=== PATIENT | male | born 1935 | race African-American/Black ===

== ENCOUNTER 2021-12-06 11:23 | Inpatient (IN) | payer BC, OTHER ==
[~2021-12-06] VITALS: Ht 172.7 cm; Wt 61.0 kg
[2021-12-06 11:30] VITALS: BP_SYST 107
--- NOTE | 2021-12-06 11:30 | NUR ---
Patient triaged and placed in waiting room. VSS and patient appears in no acute distress at this time. Accompanied by SELF, awaiting available bed, and MD notified of need for MSE.
--- NOTE | 2021-12-06 11:35 | NUR ---
PT SENT FROM DR. BENSON'S OFFICE FOR LOW H/H AND EVALUATION. PT DROVE SELF HERE, ARRIVES AAOX4, VSS. PT STATES HE HAS BEEN BEEN FEELING MORE TIRED THAN NORMAL, BUT DENIES PAIN.
[2021-12-06 12:15] LABS: BASOPHILS # (AUTO) 0.1 K/uL (0.0-0.2); EOSINOPHILS % (AUTO) 0.5 % (0.0-4.0); LYMPHOCYTES % (AUTO) 14.3 % (20.5-51.5); MEAN CORPUSCULAR HEMOGLOBIN 22 pg (27-31); MEAN CORPUSCULAR HGB CONC 31 % (32-36); MEAN CORPUSCULAR VOLUME 70 fL (79.0-98.0); MONOCYTES # (AUTO) 0.4 K/uL (0.0-1.0); MONOCYTES % (AUTO) 5.5 % (1.7-9.3); NEUTROPHILS # (AUTO) 5.3 K/uL (1.8-7.7); NEUTROPHILS % (AUTO) 78.7 % (40.0-70.0); PLATELET COUNT (AUTO) 388 K/uL (130-430); RED BLOOD CELL COUNT(AUTO) 2.96 MIL/uL (4.2-6.2); RED CELL DISTRIBUTION WIDTH 20.6 % (9.0-15.0); WHITE BLOOD COUNT (AUTO) 6.7 K/uL (4.8-10.8)
[2021-12-06 12:24] LABS: INR 1.1 (0.80-1.20); PROTHROMBIN TIME 11.5 SECS (9.5-12.5)
[2021-12-06 12:25] LABS: HEMATOCRIT 20.8 % (36-54); HEMOGLOBIN 6.5 g/dL (14.0-18.0)
[2021-12-06 13:11] LABS: ALANINE AMINOTRANSFERASE 21 U/L (12-78); ALBUMIN 2.6 g/dL (3.4-4.8); ANION GAP 18 (5-15); ASPARTATE AMINOTRANSFERASE 67 U/L (10-37); CHLORIDE 103 mmol/L (98-107); CREATININE 1.68 mg/dL (0.55-1.30); GLUCOSE 161 mg/dL (70-99); LIPASE 597 U/L (73-393); POTASSIUM 3.7 mmol/L (3.5-5.1); TOTAL BILIRUBIN 0.4 mg/dL (0.0-1.0); UREA NITROGEN, BLOOD 17 mg/dL (8-21)
[2021-12-06] MEDS ORDERED: PANTOPRAZOLE SODIUM 40 MG/VIAL (PROTONIX) IVP ONE (15:30)
--- NOTE | 2021-12-06 16:00 | NUR ---
# 20 gauge angiocath placed to LAC. Use of asceptic technique. Opsite placed over site. Blood return noted. Flushed with 10 cc of normal saline. No evidence of infiltration noted. Patient tolerated well.
--- NOTE | 2021-12-06 17:26 | NUR ---
covid swab and collected
[2021-12-06] MEDS ORDERED: ACETAMINOPHEN 325 MG TABLET PO PRN (17:45)
--- NOTE | 2021-12-06 17:55 | NUR ---
First contact. Pt presently on monitor. Denies pain. No acute distress noted.
--- NOTE | 2021-12-06 20:24 | NUR ---
Patient will be admitted to care of DR. BECERRA. Admitted to MED SURG unit. Will go to room 101 B. Belongings list completed. Complete and up to date summary report printed.
--- NOTE | 2021-12-06 20:38 | NUR ---
ADMIT NOTE Received pt from ER to with a diagnosis of Anemai. Patient ambulated from [place] to bed. Admission process initiated. patient oriented to pain management, safety and call light-teach back done.
[2021-12-06 21:36] VITALS: BP_SYST 147
--- NOTE | 2021-12-07 01:47 | NUR ---
PATIENT IS SLEEPING AT THIS TIME, ONE UNIT OF PRBC IS NOT READY YET, WILL WAIT FOR THE BLOOD TRANSFUSION . CALL LIGHT WITHIN REACH , SAFETY PROTOCOL ENSURE.
--- NOTE | 2021-12-07 04:46 | NUR ---
TRY TO CALL LABS X2 , NOBODY ANSWER , WILL F/U WITH LAB FOR 1 UNIT OF PRBC
--- NOTE | 2021-12-07 07:03 | NUR ---
RESORCE NURSE SAYING ER NURSE NEVER FILL UP THE BLOOD TRANSFUSION PAPER TO BLOOD BANK , SO PAPER JUST FILLED UP AND SENT TO BLOOD BANK, REPORT TO CHARGE NURSE.
[2021-12-07 07:33] LABS: ALANINE AMINOTRANSFERASE 20 U/L (12-78); ALBUMIN 2.3 g/dL (3.4-4.8); ANION GAP 7 (5-15); ASPARTATE AMINOTRANSFERASE 59 U/L (10-37); CALCIUM 8.2 mg/dL (8.4-11.0); CHLORIDE 108 mmol/L (98-107); CREATININE 1.39 mg/dL (0.55-1.30); GLUCOSE 85 mg/dL (70-99); POTASSIUM 4.2 mmol/L (3.5-5.1); TOTAL BILIRUBIN 0.6 mg/dL (0.0-1.0); UREA NITROGEN, BLOOD 16 mg/dL (8-21)
[2021-12-07 07:47] LABS: BASOPHILS % (AUTO) 0.5 % (0.0-2.0); EOSINOPHILS # (AUTO) 0.1 K/uL (0.0-0.4); EOSINOPHILS % (AUTO) 0.9 % (0.0-4.0); LYMPHOCYTES % (AUTO) 14.5 % (20.5-51.5); MEAN CORPUSCULAR HEMOGLOBIN 22 pg (27-31); MEAN CORPUSCULAR HGB CONC 31 % (32-36); MEAN CORPUSCULAR VOLUME 70 fL (79.0-98.0); MONOCYTES # (AUTO) 0.5 K/uL (0.0-1.0); MONOCYTES % (AUTO) 6.9 % (1.7-9.3); NEUTROPHILS # (AUTO) 5.1 K/uL (1.8-7.7); PLATELET COUNT (AUTO) 278 K/uL (130-430); RED BLOOD CELL COUNT(AUTO) 2.41 MIL/uL (4.2-6.2); RED CELL DISTRIBUTION WIDTH 20.4 % (9.0-15.0); WHITE BLOOD COUNT (AUTO) 6.6 K/uL (4.8-10.8)
[2021-12-07 08:00] VITALS: BP_SYST 118
[2021-12-07 08:22] LABS: HEMATOCRIT 16.8 % (36-54); HEMOGLOBIN 5.3 g/dL (14.0-18.0)
[2021-12-07 08:23] LABS: NEUTROPHILS % (AUTO) 77.2 % (40.0-70.0)
[2021-12-07 12:00] VITALS: BP_SYST 128
[2021-12-07] MEDS ORDERED: SIMETHICONE 40 MG/0.6 ML ML ONE (12:30)
[2021-12-07] MEDS ORDERED: MIDAZOLAM HCL 5 MG/5 ML VIAL ONE (12:30)
[2021-12-07] MEDS ORDERED: fentaNYL CITRATE/PF 100 MCG/2 ML AMP ONE (12:30)
[2021-12-07] MEDS: PANTOPRAZOLE SODIUM 40 MG in NS 50 ML IV SCH ×3 (14:05→20:00)
[2021-12-07] MEDS: OCTREOTIDE ACETATE 1,250 MCG in NS 248.75 ML IV SCH (14:18)
[2021-12-07] MEDS ORDERED: DIATR MEGLU/DIATRIZ SOD 30 ML SOLUTION PO ONE (15:02)
[2021-12-07 16:00] VITALS: BP_SYST 134
[2021-12-07 18:15] LABS: BASOPHILS % (AUTO) 0.4 % (0.0-2.0); EOSINOPHILS % (AUTO) 0.5 % (0.0-4.0); HEMATOCRIT 29.1 % (36-54); HEMOGLOBIN 9.2 g/dL (14.0-18.0); LYMPHOCYTES # (AUTO) 1.2 K/uL (1.0-5.5); LYMPHOCYTES % (AUTO) 14.5 % (20.5-51.5); MEAN CORPUSCULAR HEMOGLOBIN 23 pg (27-31); MEAN CORPUSCULAR HGB CONC 32 % (32-36); MONOCYTES # (AUTO) 0.6 K/uL (0.0-1.0); MONOCYTES % (AUTO) 7.3 % (1.7-9.3); NEUTROPHILS # (AUTO) 6.6 K/uL (1.8-7.7); NEUTROPHILS % (AUTO) 77.3 % (40.0-70.0); PLATELET COUNT (AUTO) 294 K/uL (130-430); RED BLOOD CELL COUNT(AUTO) 3.96 MIL/uL (4.2-6.2); RED CELL DISTRIBUTION WIDTH 21.7 % (9.0-15.0); WHITE BLOOD COUNT (AUTO) 8.5 K/uL (4.8-10.8)
[2021-12-07 18:17] LABS: MEAN CORPUSCULAR VOLUME 74 fL (79.0-98.0)
[2021-12-07 19:20] VITALS: BP_SYST 146
--- NOTE | 2021-12-07 19:20 | NUR ---
PM ASSESSMENT; -Pt is a/ox3, resting in bed. pt denies any chest pain,pain,sob, or any acute distress. IV site LAC patent, no s/s any infiltration noted. Pt is now on peritoneal dialysis. Pt is able to ambulate with steady gaits. Discussed poc,all safety measures to use call light for assistance or if experiencing any acute distress or pain, pt and sister verbalized understanding. fall precaution in place, side rails x2,call light w/in reach. Cont to monitor pt. Addendum: 12/08/21 at 0009 by [place] RegistryLINNEA RN CORRECTION- Pt isn't on peritoneal dialysis, not dialysis pt.
[2021-12-08 00:32] VITALS: BP_SYST 105
--- NOTE | 2021-12-08 00:32 | NUR ---
ROUNDS; -Pt is resting bed comfortably. IV site accidentally removed from pt. Inserted new IV site of left f/a #18, attempted x1 by Oleg-nurse, good blood returns and flushed well w/ ns, secured with tape and kerlix and continuing protonix drip. All safety measures,bed alarmed, side rails x3,call light w/in reach. cont to monitor pt.
[2021-12-08] MEDS: PANTOPRAZOLE SODIUM 40 MG in NS 50 ML IV SCH ×5 (01:50→21:26)
--- NOTE | 2021-12-08 01:50 | NUR ---
ROUNDS; -Pt is resting in bed comfortably. Pt denies any chest pain,pain,sob,or any acute distress. Protonix drip infusing well,no s/s any infiltration noted. Side rails x3, bed alarmed,call light w/in reach. Cont to monitor pt.
--- NOTE | 2021-12-08 04:26 | NUR ---
ROUNDS; -Pt is asleep. No s/s any chest pain,pain,sob,or any acute distress noted. Protonix drip infusing well,no s/s any infiltration noted. Side rails x3, bed alarmed,call light w/in reach. Cont to monitor pt.
--- NOTE | 2021-12-08 06:36 | NUR ---
CLOSING NOTES; -Pt is resting in bed. No s/s any chest pain,pain,sob, or any acute distress noted. IV site patent, no s/s any infiltration noted. Protonix drip infusing. Fall precaution in place,bed alarmed, side rails x3,call light w/in reach. Will endorse to next nurse to cont care.
[2021-12-08 06:51] LABS: BASOPHILS % (AUTO) 0.6 % (0.0-2.0); EOSINOPHILS # (AUTO) 0.1 K/uL (0.0-0.4); EOSINOPHILS % (AUTO) 1.4 % (0.0-4.0); HEMATOCRIT 25.1 % (36-54); LYMPHOCYTES # (AUTO) 0.5 K/uL (1.0-5.5); LYMPHOCYTES % (AUTO) 8.9 % (20.5-51.5); MEAN CORPUSCULAR HEMOGLOBIN 23 pg (27-31); MEAN CORPUSCULAR HGB CONC 32 % (32-36); MEAN CORPUSCULAR VOLUME 72 fL (79.0-98.0); MONOCYTES # (AUTO) 0.5 K/uL (0.0-1.0); NEUTROPHILS % (AUTO) 81.1 % (40.0-70.0); PLATELET COUNT (AUTO) 259 K/uL (130-430); RED BLOOD CELL COUNT(AUTO) 3.46 MIL/uL (4.2-6.2); RED CELL DISTRIBUTION WIDTH 21.7 % (9.0-15.0); WHITE BLOOD COUNT (AUTO) 6.2 K/uL (4.8-10.8)
--- NOTE | 2021-12-08 07:17 | NUR ---
CRITICAL LAB HCT=23.9, H=8.0, ENDORSED TO CHULA-RN TO CALL MD, SHE VERBALIZED THAT SHE WILL CALL MD.
[2021-12-08 07:24] LABS: ALANINE AMINOTRANSFERASE 16 U/L (12-78); ALBUMIN 2.2 g/dL (3.4-4.8); ANION GAP 6 (5-15); ASPARTATE AMINOTRANSFERASE 47 U/L (10-37); CALCIUM 8.4 mg/dL (8.4-11.0); CHLORIDE 106 mmol/L (98-107); GLUCOSE 134 mg/dL (70-99); TOTAL BILIRUBIN 1.2 mg/dL (0.0-1.0); UREA NITROGEN, BLOOD 14 mg/dL (8-21)
--- NOTE | 2021-12-08 07:28 | NUR ---
NOTES; NOW DAY SHIFT NURSE IS TARIQ. ENDORSED TO TARIQ TO CALL MD REGARDING CRITICAL HCT 23.9 AND HGB=8.0 AND TO ASK MD SIGN DNR STATUS UPON PT'S REQUEST.
[2021-12-08] MEDS: OCTREOTIDE ACETATE 1,250 MCG in NS 248.75 ML IV SCH (10:19)
[2021-12-08 11:29] VITALS: BP_SYST 130
[2021-12-08 15:29] VITALS: BP_SYST 130
[2021-12-08 19:20] VITALS: BP_SYST 137
--- NOTE | 2021-12-08 19:21 | NUR ---
PM ASSESSMENT; -Pt is a/ox4, resting in bed. pt denies any chest pain,pain,sob, or any acute distress. IV site LAC patent, no s/s any infiltration noted. Discussed poc,all safety measures to use call light for assistance or if experiencing any acute distress or pain, pt verbalized understanding. fall precaution in place, side rails x3,call light w/in reach. Cont to monitor pt.
--- NOTE | 2021-12-08 21:20 | NUR ---
NOTES; -Pt attempted to get OOB without using call light for assistance. Assisting pt to bathroom and return to bed safely. Pt has slow weak gaits noted, with mini assistance. Pt had a large dark tarry stool noted. Reminded pt to use call light for assistance when need to get OOB or if experiencing any pain or acute distress, pt verbalized understanding. Bed alarmed, side rails x3,call light w/in reach. cont to monitor pt.
[2021-12-09] MEDS: PANTOPRAZOLE SODIUM 40 MG in NS 50 ML IV SCH ×2 (00:13→05:59)
--- NOTE | 2021-12-09 00:13 | NUR ---
ROUNDS; -Pt is resting in bed comfortably. Pt denies any chest pain,pain,sob,or any acute distress. Side rails x3, bed alarmed,call light w/in reach. Cont to monitor pt.
[2021-12-09 00:41] VITALS: BP_SYST 137
--- NOTE | 2021-12-09 03:40 | NUR ---
NOTES; -Pt is asleep. No s/s any acute distress noted. bed alarmed, side rails x3, call light w/in reach. Cont to monitor pt.
--- NOTE | 2021-12-09 05:23 | NUR ---
CONSULTATION PAGED/CALLED Reason for Consultation: POSSIBLE DUODENAL CANCER Person Who was Notified:[place] Consulting Physician: KIERAN [employer] Specialty: Ordering Physician: RAÚL
--- NOTE | 2021-12-09 06:38 | NUR ---
CLOSING NOTES; -Pt is resting in bed. No s/s any chest pain,pain,sob, or any acute distress noted. IV site patent, no s/s any infiltration noted. Fall precaution in place,bed alarmed, side rails x3,call light w/in reach. Will endorse to next nurse to cont care.
[2021-12-09 07:43] LABS: ANION GAP 9 (5-15); CALCIUM 8.1 mg/dL (8.4-11.0); CHLORIDE 105 mmol/L (98-107); CREATININE 1.29 mg/dL (0.55-1.30); GLUCOSE 111 mg/dL (70-99); POTASSIUM 3.8 mmol/L (3.5-5.1); UREA NITROGEN, BLOOD 9 mg/dL (8-21)
[2021-12-09 07:59] LABS: BASOPHILS % (AUTO) 0.7 % (0.0-2.0); EOSINOPHILS # (AUTO) 0.1 K/uL (0.0-0.4); EOSINOPHILS % (AUTO) 2.2 % (0.0-4.0); HEMATOCRIT 27.7 % (36-54); HEMOGLOBIN 8.8 g/dL (14.0-18.0); LYMPHOCYTES # (AUTO) 0.9 K/uL (1.0-5.5); LYMPHOCYTES % (AUTO) 13.8 % (20.5-51.5); MEAN CORPUSCULAR HEMOGLOBIN 23 pg (27-31); MEAN CORPUSCULAR HGB CONC 32 % (32-36); MEAN CORPUSCULAR VOLUME 72 fL (79.0-98.0); MONOCYTES # (AUTO) 0.5 K/uL (0.0-1.0); MONOCYTES % (AUTO) 7.5 % (1.7-9.3); NEUTROPHILS # (AUTO) 5.1 K/uL (1.8-7.7); NEUTROPHILS % (AUTO) 75.8 % (40.0-70.0); PLATELET COUNT (AUTO) 269 K/uL (130-430); RED BLOOD CELL COUNT(AUTO) 3.83 MIL/uL (4.2-6.2); RED CELL DISTRIBUTION WIDTH 21.8 % (9.0-15.0); WHITE BLOOD COUNT (AUTO) 6.7 K/uL (4.8-10.8)
[2021-12-09 08:00] VITALS: BP_SYST 125
[2021-12-09] MEDS: OCTREOTIDE ACETATE 1,250 MCG in NS 248.75 ML IV SCH (11:21)
[2021-12-09 11:28] VITALS: BP_SYST 133
[2021-12-09 15:36] VITALS: BP_SYST 142
--- NOTE | 2021-12-09 17:39 | NUR ---
Shift Summary: patient is AAOX3-4. vitals are stable. patient and family updated on plan of care. patient currently resting. patient and family state they have no questions or concerns at this time. will endorse to oncoming nurse. call light within reach. bed set to low and locked. [id number] done during shift.
--- NOTE | 2021-12-09 19:30 | NUR ---
Opening note Pt is awake a/o x4, resting in bed. No s/s of respiratory distress. Breathing even and unlabored on RA. IV infusing octreotide drip at ordered rate. Pt does not c/o any pain. Fall and safety precautions in place with bed in lowest position, bed alarm on, and call light within reach
[2021-12-09 20:00] VITALS: BP_SYST 141
[2021-12-09] MEDS: PANTOPRAZOLE SODIUM 40 MG/VIAL (PROTONIX) IVP SCH (20:12)
[2021-12-10 00:09] VITALS: BP_SYST 125
--- NOTE | 2021-12-10 00:15 | NUR ---
NOTE assisted pt to the restroom, was able to ambulate with minimal assistance. No s/s of acute distress
--- NOTE | 2021-12-10 04:00 | NUR ---
Note Pt got up out of bed w/ bed alarm on in attempt to walk to the bathroom and pulled out IV. A new IV was placed - 24G in the right hand
--- NOTE | 2021-12-10 06:49 | NUR ---
Closing note Pt is awake lying in bed. No s/s of respiratory distress. Breathing even and unlabored on RA. IV infusing octreotide drip at ordered rate. Educated pt to use the call light if he needs to use the bathroom instead of getting up himself, verbalized understanding. All needs met throughout shift. Fall and safety precautions in place with bed in lowest position, bed alarm on, and call light within reach
[2021-12-10 07:09] LABS: HEMATOCRIT 29.1 % (36-54); HEMOGLOBIN 9.3 g/dL (14.0-18.0); MEAN CORPUSCULAR HEMOGLOBIN 23 pg (27-31); MEAN CORPUSCULAR HGB CONC 32 % (32-36); MEAN CORPUSCULAR VOLUME 72 fL (79.0-98.0); PLATELET COUNT (AUTO) 262 K/uL (130-430); RED BLOOD CELL COUNT(AUTO) 4.03 MIL/uL (4.2-6.2); RED CELL DISTRIBUTION WIDTH 21.7 % (9.0-15.0); WHITE BLOOD COUNT (AUTO) 7.2 K/uL (4.8-10.8)
[2021-12-10 07:29] LABS: ANION GAP 9 (5-15); CALCIUM 8.1 mg/dL (8.4-11.0); CHLORIDE 104 mmol/L (98-107); CREATININE 1.11 mg/dL (0.55-1.30); GLUCOSE 109 mg/dL (70-99); POTASSIUM 3.8 mmol/L (3.5-5.1); UREA NITROGEN, BLOOD 8 mg/dL (8-21)
[2021-12-10 07:55] VITALS: BP_SYST 137
[2021-12-10 08:00] VITALS: BP_SYST 137
[2021-12-10 09:09] LABS: BASOPHILS % (MANUAL) 0 % (0-2); EOSINOPHILS % (MANUAL) 1 % (0-7); LYMPHOCYTES % (MANUAL) 8 % (20-46); MONOCYTES % (MANUAL) 7 % (0-11)
[2021-12-10] MEDS: PANTOPRAZOLE SODIUM 40 MG/VIAL (PROTONIX) IVP SCH ×2 (09:31→22:35)
[2021-12-10] MEDS: OCTREOTIDE ACETATE 1,250 MCG in NS 248.75 ML IV SCH (11:00)
--- NOTE | 2021-12-10 15:27 | NUR ---
FOOD SAFETY COORDINATOR ACSW Joann respnded to a Hospice eval request ACSW faxed packet for review to [facility] F: P: ACSW Joann will continue to be available as needed
[2021-12-10 17:12] VITALS: BP_SYST 153
--- NOTE | 2021-12-10 19:00 | NUR ---
I RECEIVED ALERT AND FULLY ORIENTED X 3 .HAS IVF @10ml/h .A RT CANNULA IS IN TISSUE. RE INSERTED A G20 TO RT LOWER HAND .VITALS DONE BPS ELEVATED. MEDICATED WITH BP MEDS
[2021-12-10 20:00] VITALS: BP_SYST 140
--- NOTE | 2021-12-11 | NUR ---
PT SELF TURNS .IVF IN PROGRESS
[2021-12-11 00:42] VITALS: BP_SYST 139
[2021-12-11] MEDS: PANTOPRAZOLE SODIUM 40 MG/VIAL (PROTONIX) IVP SCH (09:00)
--- NOTE | 2021-12-11 11:30 | NUR ---
ASSISTANT WOMEN'S TENNIS COACH ACSW Joann provided hospice and discharge update to patient's RN Fatemeh. [facility] @230pm via [facility] ACSW will continue to be available as needed
--- NOTE | 2021-12-11 12:30 | NUR ---
ENTRY EXAMINER ACSW Joann met with patient at bedside. Patient was awake, alert and oriented x4. ACSW completed introductions and provided business card, patient was open to contact. Patient's sister Yuliana was also present and patient provided permission to continue contact. ACSW discussed hospice services and informed him that [facility] would be arriving shortly to discuss services. ACSW also confirmed his wishes to receive hospice services in his home and confirmed address. Patient continued to express his agreement with hospice and desire to return home as soon as possible. Patient was updated with transport time. ACSW will continue to be available as needed
[2021-12-11 12:44] VITALS: BP_SYST 142
[2021-12-11 13:25] VITALS: BP_SYST 147
[2021-12-12 08:06] LABS: % FREE PSA 16.7 % (.); CARBOHYDRATE AG 19-9 <2 U/mL (0-35); FREE PSA 0.25 ng/mL; PROSTATE SPECIFIC AG TOTAL 1.5 ng/mL (0.0-4.0)
--- NOTE | 2021-12-14 08:21 | NUR ---
Dispo code 50
== END 2021-12-11 16:20 | disposition hospice, home (50) | DRG 374 ==
LOC: SED 11:23 → SMU 16:43
PROVIDERS: ADMIT Internal Medicine; ATTEND Internal Medicine
PROC: 30233N1 Transfusion of Nonautologous Red Blood Cells into Peripheral Vein, Percutaneous Approach (ICD-10-PCS; 2021-12-07)
PROC: 0DB98ZX Excision of Duodenum, Via Natural or Artificial Opening Endoscopic, Diagnostic (ICD-10-PCS; principal; 2021-12-07 14:00)
DX: C17.0 Malignant neoplasm of duodenum (principal); E43 Unspecified severe protein-calorie malnutrition; N17.0 Acute kidney failure with tubular necrosis; C78.7 Secondary malignant neoplasm of liver and intrahepatic bile duct; N17.9 Acute kidney failure, unspecified; D64.9 Anemia, unspecified; Z66 Do not resuscitate; Z20.822 Contact with and (suspected) exposure to COVID-19
CPT/HCPCS: 36415; 43239; 71260-TC; 76376; 80048; 80053; 82550; 83690; 84153; 85007; 85025; 85027; 85610-TC; 85730-TC; 86301; 86886; 86900; 86901; 86920; 88305; 88313; 88341; 88342; 88361; 96374; 99291; 99292; C9113; J2250; J3010; J7040; J7050; P9021; Q9964; Q9967